=== PATIENT | female | born 1990 | race Two or more races ===

== ENCOUNTER 2024-07-11 12:33 | Emergency (ER) | payer BC ==
[~2024-07-11] VITALS: Ht 160 cm; Wt 59.0 kg
[2024-07-11] MEDS ORDERED: PANTOPRAZOLE 40 MG VIAL ONE (12:58)
[2024-07-11] MEDS ORDERED: ONDANSETRON HCL/PF 4 MG/2 ML VIAL ONE (12:58)
[2024-07-11] MEDS: IV NS 0.9% 1,000 ML BAG IV ONE (13:00)
[2024-07-11] MEDS: PANTOPRAZOLE 40 MG VIAL IV ONE (13:05)
[2024-07-11] MEDS: ONDANSETRON HCL/PF 4 MG/2 ML VIAL IVP ONE (13:10)
[2024-07-11] MEDS: KETOROLAC TROMETHAMINE 15 MG/ML VIAL IV ONE (13:10)
[2024-07-11 13:12] LABS: APPEARANCE,URINE CLEAR (CLEAR); BILIRUBIN,URINE NEGATIVE (NEGATIVE); BLOOD, URINE NEGATIVE Ery/uL (NEGATIVE); COLOR,URINE YELLOW (YELLOW); KETONES,URINE NEGATIVE (NEGATIVE); LEUKOCYTE ESTERASE ,URINE NEGATIVE (NEGATIVE); NITRITE, URINE NEGATIVE (NEGATIVE); PROTEIN,URINE NEGATIVE (NEGATIVE); UGLUCOSE NEGATIVE (NEGATIVE); UROBILINOGEN,URINE 0.2 EU/dL (0.2)
[2024-07-11 13:23] LABS: CALCIUM, SERUM 9.7 mg/dL (8.5-10.1); CREATININE 0.9 mg/dL (0.6-1.3)
[2024-07-11 13:28] LABS: ALBUMIN 4.1 g/dL (3.4-5.0); BILIRUBIN,DIRECT 0.1 mg/dL (0.0-0.2); BILIRUBIN,TOTAL 0.4 mg/dL (0.2-1.0); TOTAL PROTEIN, SERUM 7.9 g/dL (6.4-8.2)
[2024-07-11 13:35] LABS: BASOPHILS % (AUTO) 0.8 % (0.0-2.0); EOSINOPHILS % (AUTO) 2.5 % (0.0-6.0); HEMATOCRIT 43 % (33-45); HEMOGLOBIN 14.3 g/dL (11.5-14.8); LYMPHOCYTES # (AUTO) 1.1 K/uL (0.8-4.8); LYMPHOCYTES % (AUTO) 58.4 % (20.0-44.0); MEAN CORPUSCULAR HEMOGLOBIN 29 PG (26.0-33.0); MEAN CORPUSCULAR HGB CONC 33 g/dl (31.0-36.0); MEAN CORPUSCULAR VOLUME 86 fL (82-100); MONOCYTES # (AUTO) 0.2 K/uL (0.1-1.30); NEUTROPHILS # (AUTO) 0.6 K/uL (1.8-8.9); NEUTROPHILS % (AUTO) 30.3 % (43.0-81.0); PLATELET COUNT (AUTO) 186 K/uL (150-450); RED BLOOD CELL COUNT(AUTO) 4.98 MIL/uL (4.0-5.2); RED CELL DISTRIBUTION WIDTH 13.9 % (11.5-15.0)
[2024-07-11 13:37] LABS: WHITE BLOOD COUNT (AUTO) 1.9 K/uL (4.3-11.0)
[2024-07-11 14:06] LABS: LYMPHOCYTES % (MANUAL) 46 % (16-48); MONOCYTES % (MANUAL) 6 % (0-11.0); NEUTROPHILS % (MANUAL) 48 (42-76); PLATELET ESTIMATE ADEQUATE
[2024-07-11 14:07] LABS: ANISOCYTOSIS 1+
[2024-07-11 16:00] VITALS: BP 118/75; TEMP 98; O2SAT 99
== END 2024-07-11 16:03 | disposition home or self-care (01) ==
LOC: ER 12:42
DX: R10.10 Upper abdominal pain, unspecified (principal); R07.9 Chest pain, unspecified; R11.10 Vomiting, unspecified
CPT/HCPCS: 99285; 96374; 76705; 96361; 85025; 80048; 83690; 80076; 81003; 36415; 85007; J2405; J7030; J2470